=== PATIENT | male | born 1990 | race Caucasian/White ===

== ENCOUNTER 2020-09-24 18:55 | Emergency (ER) | payer BC ==
[2020-09-24 19:07] VITALS: BP 150/78; PULSE 99; TEMP 98.6; BMI 25.7
[2020-09-24] MEDS ORDERED: KETOROLAC TROMETHAMINE 60 MG/2 ML VIAL IM ONE (19:25)
[2020-09-24] MEDS ORDERED: KETOROLAC TROMETHAMINE 30 MG/1 ML VIAL ONE (19:28)
== END 2020-09-24 20:58 | disposition home or self-care (01) ==
LOC: JERFT 18:55
PROC: 3E0233Z Introduction of Anti-inflammatory into Muscle, Percutaneous Approach (ICD-10-PCS; principal; 2020-09-24)
DX: M79.671 Pain in right foot (principal)
CPT/HCPCS: 73610-TC-RT-FY; 73630-TC-RT-FY; 99284-25